=== PATIENT | female | born 1965 ===

== ENCOUNTER 2017-06-22 12:36 | Emergency (ER) | payer MEDICAID ==
[2017-06-22 12:51] VITALS: BMI 24.1
[2017-06-22 12:56] VITALS: TEMP 98.1
--- NOTE | 2017-06-22 13:14 | ED PDOC ---
Arrival/HPI - General Chief Complaint: Abdominal Pain Time Seen by Provider: 06/22/17 13:09 Historian: Patient - History of Present Illness Narrative History of Present Illness (Text): 06/22/17 13:14 A 52 year old female presents to the emergency department complaining of right lower abdominal pain for 1 month. Patient reports she was seen at [facility] [place] symptoms and prescribed Macrobid to treat a UTI. Patient has been complaint with the medication but continues to experience symptoms. She notes radiating pain to right side of back and urinary frequency. Patient denies any fever, chills, nausea, vomiting, diarrhea, dysuria, hematuria, vaginal discharge, vaginal bleeding, chest pain, shortness of breath or any other complaints. PMD: Dr. Garduno Time/Duration: Other (1 month) Symptom Course: Unchanged Quality: Other Context: Home Past Medical History - Provider Review Nursing Documentation Reviewed: Yes - Infectious Disease Hx of Infectious Diseases: None - Reproductive Menopause: Yes - Cardiac Hx Cardiac Disorders: No - Pulmonary Hx Respiratory Disorders: Yes Hx Asthma: Yes - Neurological Hx Neurological Disorder: No - HEENT Hx HEENT Disorder: No - Renal Hx Renal Disorder: No - Endocrine/Metabolic Hx Endocrine Disorders: No - Hematological/Oncological Hx Blood Disorders: No - Integumentary Hx Dermatological Disorder: No - Musculoskeletal/Rheumatological Hx Musculoskeletal Disorders: No - Gastrointestinal Hx Gastrointestinal Disorders: No - Genitourinary/Gynecological Hx Genitourinary Disorders: No - Psychiatric Hx Psychophysiologic Disorder: No Hx Substance Use: Yes (hx of) - Surgical History Hx Section: Yes (3) - Anesthesia Hx Anesthesia: Yes Hx Anesthesia Reactions: No Family/Social History - Physician Review Nursing Documentation Reviewed: Yes Family/Social History: No Known Family HX Smoking Status: Light Smoker < 10 Cigarettes Daily Hx Alcohol Use: No Hx Substance Use: Yes (hx of) Allergies/Home Meds Allergies/Adverse Reactions: Allergies No Known Allergies Allergy (Verified 06/22/17 12:51) Home Medications: Home Meds Medication Instructions Recorded Confirmed Methadone [Methadone] 19 mg PO DAILY 06/22/17 06/22/17 Review of Systems - Physician Review All systems were reviewed & negative as marked: Yes - Review of Systems Constitutional: absent: Fevers, Night Sweats Respiratory: absent: SOB Cardiovascular: absent: Chest Pain Gastrointestinal: Abdominal Pain. absent: Diarrhea, Nausea, Vomiting Genitourinary Female: Frequency. absent: Dysuria, Hematuria, Vaginal Bleeding, Vaginal Discharge Musculoskeletal: Back Pain Physical Exam Vital Signs Reviewed: Yes Vital Signs Temp Pulse Resp BP Pulse Ox 06/22/17 16:52 62 16 112/87 98 06/22/17 15:04 59 L 16 109/70 96 06/22/17 12:54 98.1 F 65 19 114/79 96 Temperature: Afebrile Blood Pressure: Normal Pulse: Regular Respiratory Rate: Normal Appearance: Positive for: Well-Appearing Pain Distress: None Mental Status: Positive for: Alert and Oriented X 3 - Systems Exam Head: Present: Atraumatic, Normocephalic Pupils: Present: PERRL Extroacular Muscles: Present: EOMI Conjunctiva: Present: Normal Mouth: Present: Moist Mucous Membranes Pharnyx: No: ERYTHEMA, EXUDATE, TONSILS ENLARGED Neck: Present: Normal Range of Motion Respiratory/Chest: Present: Good Air Exchange, Wheezes (Scant Wheezing). No: Respiratory Distress, Accessory Muscle Use Cardiovascular: Present: Regular Rate and Rhythm, Normal S1, S2. No: Murmurs Abdomen: Present: Tenderness (Scant RLQ tenderness to palpation), Normal Bowel Sounds. No: Distention, Peritoneal Signs Back: Present: Normal Inspection. No: CVA Tenderness Upper Extremity: Present: Normal Inspection. No: Cyanosis, Edema Lower Extremity: Present: Normal Inspection. No: Edema Neurological: Present: GCS=15, CN II-XII Intact, Speech Normal Skin: Present: Warm, Dry, Normal Color. No: Rashes Psychiatric: Present: Alert, Oriented x 3, Normal Insight, Normal Concentration Medical Decision Making ED Course and Treatment: 06/22/17 13:14 Impression: A 52 year old female with RLQ pain radiating to right back and urinary frequency. Patient recently treated at [facility] a UTI. Differential Diagnosis included but are not limited to: Renal Colic VS Appendicitis VS Urinary Tract Infection Plan: -- Labs -- Urinalysis, Urine Culture -- Toradol -- Reassess and disposition Progress Notes: 06/22/17 14:40 Labs reviewed, which showed hematuria but negative leukocytes and nitrates. Will order abdomen and pelvis CT and send urine culture. Report Date : 06/22/2017 16:31:47 PROCEDURE: CT Abdomen and Pelvis without intravenous or oral contrast Dictator : Terrance Hooper MD IMPRESSION: No significant or acute findings to account for/ related to the clinical presentation. Additional benign and/or incidental findings described above. 06/22/17 16:[address] negative. Abdomen soft NT/ND. Referred patient to urology for hematuria and gynecology. - Lab Interpretations Lab Results: 06/22/17 14:17 06/22/17 14:17 Lab Results 06/22/17 14:17: Sodium 141, Potassium 3.9, Chloride 101, Carbon Dioxide 30, Anion Gap 14, BUN 9, Creatinine 0.8, Est GFR ( Amer) > 60, Est GFR (Non- Af Amer) > 60, Random Glucose 85, Calcium 9.5, Total Bilirubin 0.4, AST 25, ALT 25, Alkaline Phosphatase 90, Total Protein 8.3, Albumin 4.4, Globulin 3.9, Albumin/Globulin Ratio 1.1 06/22/17 14:17: Urine Color Yellow, Urine Appearance Clear, Urine pH 6.0, Ur Specific [place] 1.025, Urine Protein Negative, Urine Glucose (UA) Negative, Urine Ketones Negative, Urine Blood Small H, Urine Nitrate Negative, Urine Bilirubin Negative, Urine Urobilinogen 0.2, Ur Leukocyte Esterase Negative, Urine RBC 2 - 5, Urine WBC 0 - 2, Ur Epithelial Cells 0 - 2, Urine Bacteria Few 06/22/17 14:17: WBC 6.1, RBC 4.44, Hgb 13.1, Hct 38.9, MCV 87.6, MCH 29.5, MCHC 33.7, RDW 13.2, Plt Count 291, MPV 10.8, Gran % 62.0, Lymph % (Auto) 27.5, [place] % (Auto) 6.7 H, Eos % (Auto) 3.1, Baso % (Auto) 0.7, Gran # 3.79, Lymph # 1.7, [place] # 0.4, Eos # 0.2, Baso # 0.04 I have reviewed the lab results: Yes - RAD Interpretation Radiology Orders: 06/22/17 14:40 ABD & PELVIS W/O PO OR IV CONT [CT] Stat - Medication Orders Current Medication Orders: Discontinued Medications Iodixanol (Visipaque 320 Mg/Ml 100 Ml) Confirm Administered Dose 100 ml IV .[place]- MED ONE Stop: 06/22/17 14:59 Ketorolac Tromethamine (Toradol) 30 mg IVP STAT STA Stop: 06/22/17 13:17 Last Admin: 06/22/17 14:10 Dose: 30 mg Re-Assess: VENESSA Pain Assessment Document 06/22/17 15:10 HI (Rec: 06/22/17 16:14 HI [id number]) Pain Reassessment Is this a pain reassessment? Yes Sleep Is patient sleeping during reassessment? Yes - Scribe Statement The provider has reviewed the documentation as recorded by the Scribe Rohith Hamilton training with Dunia De Souza Provider Scribe Attestation: All medical record entries made by the Scribe were at my direction and personally dictated by me. I have reviewed the chart and agree that the record accurately reflects my personal performance of the history, physical exam, medical decision making, and the department course for this patient. I have also personally directed, reviewed, and agree with the discharge instructions and disposition. Disposition/Present on Arrival - Present on Arrival Any Indicators Present on Arrival: No History of DVT/PE: No History of Uncontrolled Diabetes: No Urinary Catheter: No History of Decub. Ulcer: No History Surgical Site Infection Following: None - Disposition Have Diagnosis and Disposition been Completed?: Yes Diagnosis: Abdominal pain, Hematuria Disposition: HOME/ ROUTINE Disposition Time: 16:39 Patient Plan: Discharge Condition: GOOD Additional Instructions: Follow up with PMD within 2 days. Return to ED if condition worsens. Follow- up with principal cloud architect for pap smear and futher evaluation. Follow-up with urology for hematuria. Referrals: Toan Garduno MD [Primary Care Provider] - Follow up with primary Jacob Erickson MD [Medical Doctor] - Follow up with primary Forms: [employer] (Latvian), WORK NOTE
[2017-06-22 14:22] LABS: BASO # 0.04 K/mm3 (0.0-2.0); BASO % 0.7 % (0.0-3.0); EOS # 0.2 (0.0-0.7); EOS % 3.1 % (1.5-5.0); GRAN # 3.79 (1.4-6.5); HEMOGLOBIN 13.1 g/dL (12.0-16.0); LYMPH # 1.7 (1.2-3.4); LYMPH % 27.5 % (22.0-35.0); MEAN CELL VOLUME 87.6 fl (80.0-105.0); MEAN CORPUSCULAR HEMOGLOBIN 29.5 pg (25.0-35.0); MEAN CORPUSCULAR HGB CONC 33.7 g/dl (31.0-37.0); MEAN PLATELET VOLUME 10.8 fl (7.0-11.0); MONO # 0.4 (0.1-0.6); MONO % 6.7 % (1.0-6.0); PLATELET COUNT 291 10^3/uL (120.0-450.0); RBC 4.44 10^6/uL (3.5-6.1); RED CELL DISTRIBUTION WIDTH 13.2 % (11.5-14.5); URINE BILIRUBIN NEGATIVE (NEGATIVE); URINE BLOOD SMALL (NEGATIVE); URINE GLUCOSE (UA) NEGATIVE (NEGATIVE); URINE LEUKOCYTE ESTERASE NEGATIVE Leu/uL (NEGATIVE); URINE NITRATE NEGATIVE (NEGATIVE); URINE PROTEIN NEGATIVE mg/dL (<30 mg/dL); URINE UROBILINOGEN 0.2 E.U./dL (<1 E.U./dL); WHITE BLOOD COUNT 6.1 10^3/ul (4.5-11.0)
[2017-06-22 14:24] LABS: URINE APPEARANCE CLEAR (CLEAR); URINE COLOR YELLOW (YELLOW)
[2017-06-22 14:36] LABS: URINE WBC 0 - 2 /hpf (0-6)
[2017-06-22 14:37] LABS: URINE BACTERIA FEW (NEG); URINE EPITHELIAL CELLS 0 - 2 /hpf (0-5)
[2017-06-22 14:40] LABS: ALB/GLOB RATIO 1.1 (1.1-1.8); ALBUMIN 4.4 g/dL (3.0-4.8); ALT/SGPT 25 U/L (7-56); AST/SGOT 25 U/L (15-39); BLOOD UREA NITROGEN 9 mg/dL (7-21); CALCIUM 9.5 mg/dL (8.4-10.5); GFR AFRICAN-AMERICAN > 60; GFR NON-AFRICAN AMERICAN > 60
[2017-06-22] MEDS ORDERED: Iodixanol 320 MG/ML 100 ML BOTTLE IV ONE (14:58)
[2017-06-22 15:05] VITALS: RESP 16
--- NOTE | 2017-06-22 16:33 | CT ---
PROCEDURE: CT Abdomen and Pelvis without intravenous or oral contrast HISTORY: hematuria COMPARISON: None. TECHNIQUE: Technique Contiguous axial images of the abdomen and pelvis without intravenous or oral contrast. Radiation dose: Total exam DLP = 357.89 mGy-cm. This CT exam was performed using one or more of the following dose reduction techniques: Automated exposure control, adjustment of the mA and/or kV according to patient size, and/or use of iterative reconstruction technique. FINDINGS: LOWER THORAX: Focal areas of scarring/ linear atelectasis at the lung bases and lingula. LIVER: Unremarkable. GALLBLADDER AND BILE DUCTS: Unremarkable. PANCREAS: Unremarkable. No ductal dilatation. SPLEEN: Unremarkable. No splenomegaly. ADRENALS: Unremarkable. KIDNEYS AND URETERS: Unremarkable. No hydronephrosis. Incidental finding(s): Hyperdense cyst midpole region right kidney 10 mm. Hyperdense cyst upper pole right kidney 7 mm. Simple cyst lower pole right kidney 2.2 cm. BLADDER: Unremarkable. No calculus. REPRODUCTIVE: Unremarkable. APPENDIX: Unremarkable. Normal appendix. STOMACH AND BOWEL: Unremarkable. No obstruction. No gross mural thickening. PERITONEUM: Unremarkable. No significant fluid collection. No free air. LYMPH NODES: Unremarkable. No enlarged lymph nodes. VASCULATURE: Unremarkable. No aortic aneurysm. BONES: No acute fracture. OTHER FINDINGS: None . IMPRESSION: No significant or acute findings to account for/ related to the clinical presentation. Additional benign and/or incidental findings described above.
[2017-06-22 17:05] VITALS: BP 112/87; PULSE 62; O2SAT 98
== END 2017-06-22 16:52 | disposition home or self-care (01) ==
LOC: MERGE 12:36 → ED 12:36
DX: R10.9 Unspecified abdominal pain (principal); R31.9 Hematuria, unspecified
CPT/HCPCS: 74176; 80053; 81001; 85025; 87086; 96374; 99284; J1885